=== PATIENT | female | born 1955 | race Caucasian/White ===

== ENCOUNTER 2021-12-22 20:45 | Inpatient (IN) | payer MEDICARE, OTHER, SELFPAY ==
--- NOTE | ~2021-12-22 | MR_ITS ---
EXAMINATION: MR BRAIN WITHOUT CONTRAST CLINICAL INFORMATION: Multiple sclerosis. Recent psychotic episode. COMPARISON: None available. TECHNIQUE: MRI of the brain was obtained using routine sequences without contrast. FINDINGS: No focal restricted diffusion is demonstrated to suggest acute or subacute cerebral ischemia. No evidence of acute hemorrhagic products on heme-sensitive imaging. Punctate focus of susceptibility artifact in the right parietal lobe consistent with petechial microhemorrhage. Few nonspecific scattered periventricular and deep white matter T2 FLAIR hyperintensities consistent with mild underlying microangiopathy. There is also mild nonspecific T2 FLAIR hyperintensity at the septal callosal septal interface. Proportional prominence of the ventricles and sulcal spaces without evidence of obstructive hydrocephalus. No abnormal mass effect. No midline shift. Normal appearance of the pituitary gland. Normal positioning of the cerebellar tonsils. Normal arterial and venous vascular flow voids are present. Normal, homogeneous marrow signal. Mild mucosal thickening of the paranasal sinuses. No signal abnormalities within the mastoids. MR/MR head/brain wo con IMPRESSION: 1. No acute intracranial abnormalities. 2. Mild nonspecific white matter changes and generalized cerebral volume loss.
[2021-12-22 20:55] VITALS: BP 159/84; PULSE 108; RESP 18; TEMP 36.6; O2SAT 97
[2021-12-22] MEDS: busPIRone HCl 5 MG TABLET 15 MG PO (21:55)
[2021-12-22] MEDS: Baclofen 10 MG TABLET PO (21:56)
[2021-12-22] MEDS: QUEtiapine Fumarate 200 MG TABLET 600 MG PO (21:56)
[2021-12-22] MEDS: amantadine HCL 100 MG CAPSULE PO (21:57)
[2021-12-22] MEDS: NaPROXEN 500 MG TABLET PO (21:58)
[2021-12-22] MEDS: clonazePAM 0.5 MG TABLET PO (21:58)
[2021-12-22] MEDS: QUEtiapine Fumarate 100 MG TABLET PO (21:59)
[2021-12-22] MEDS: Azelastine HCl Nasal 137 MCG/Spray 30 ML 2 SPRAY NOSTRIL-B (22:00)
--- NOTE | 2021-12-23 01:14 | PC.ADMIT ---
Pt is a 66 yr old cisgender female who arrived to S1 unit at approximately 22:55 on 12/22/2021 via stretcher with toll mechanic from [facility] due to acute exacerbation of nasir and psychosis related to bipolar. Legal status: CV. Pt has a Past Medical History of MS, Diabetes, Hypothyroidism, HTN, Chronic Back Pain. Covid Status negative. Pt A&Ox2. Forgetful but can verbalize needs. VS: 97.8, 108, 16, 159/84, 97% RA. Reported 8/10 right lower back pain and recieved PRN Naproxen with + effect. Takes pills whole with water without any swallowing difficulties. Pt has flat affect, withdrawn, pleasant, and is able to answer appropriately. I havn't slept well. I need sleep. Pt wears glasses to see visually. Pt stated that she was a former smoker of over 30 years ago. Denies substance use. LSC on ausculation. BS+ in all 4 quads. Abd non distended, non rigid. Stated that her last BM was this morning. Pedal pulses present . Lower bilateral extremity swelling present. Pt compliant with scheduled HS meds. Pt oriented to room, staff, unit, and roommate. Pt appears to be sleeping comfortably at this time. Safety checks in place. Pt reports feeling safe in hospital.
[2021-12-23] MEDS: Levothyroxine Sodium 112 MCG TABLET PO (05:51)
[2021-12-23 06:00] VITALS: BP 124/72; PULSE 91; RESP 17; TEMP 37.2; O2SAT 94
[2021-12-23] MEDS: busPIRone HCl 5 MG TABLET 15 MG PO (07:53)
[2021-12-23] MEDS: QUEtiapine Fumarate 200 MG TABLET 600 MG PO (07:54)
[2021-12-23] MEDS: clonazePAM 0.5 MG TABLET PO ×2 (07:55→13:26)
[2021-12-23] MEDS: amantadine HCL 100 MG CAPSULE PO (07:55)
[2021-12-23] MEDS: Baclofen 10 MG TABLET PO ×4 (07:55→20:47)
[2021-12-23] MEDS: Valsartan 160 MG TABLET PO (07:55)
[2021-12-23] MEDS: Furosemide 20 MG TABLET PO (07:56)
[2021-12-23] MEDS: metFORMIN HCl ER 500 MG TAB.ER.24H 1000 MG PO ×2 (07:56→16:28)
[2021-12-23] MEDS: QUEtiapine Fumarate 100 MG TABLET PO (07:57)
--- NOTE | 2021-12-23 10:30 | P.HPPS_ITS ---
HPI Date of Service: 12/23/21 Chief Complaint: Unspecified Bipolar and Related Disorder Sources of Information: patient interviewed, chart reviewed and crisis/core team assessment reviewed HPI Subjective Notes: Lewis Warning and Conditional Voluntary Narrative: Ms. Condon is a 66 year-old woman with hx of Bipolar disorder, MS, Hypothyroidi sm, who was brought to ED due to increase paranoia, confusion, poor sleep and AH. Although pt does have long hx of Bipolar, her [place] [facility] psychiatrist was concern about one this being flare up of MS, and/or new medication for weight loss (Lomaira- beta adrenergic medication that increases noradrenaline thus potential for psychosis) that pt recently started in order to have back surgery. In the ED- utox was negative. Pt had head CT- report or images not available but it appears no acute pathology (note that head CT would not identify active or recent MS lesions to suggest active MS flare up), urinalysis was negative. CBC on 12/20 shows normocytic-macrocitic anemia. CMP on 12/20 does show some elevation on Cr 1.2; BUN 32. TSH wnl 2.11. On the unit, Mrs. Condon presents as hypervigilant, overly fearful and anxious. Her speech is disorganized and is difficult for her to provide a coherent hx as to events leading to this admission. Pt reported hearing voices of demons at night. Pt constantly apologize for taking other people's time. She denies suicidal or homicidal ideation. This senior grant writer obtained most collateral information from her . I did called his OP psychiatrist, Dr. Krishnamurthy who is out on vacation but did leave message with MA about concerns described above. Past Psychiatric History: Inpt: several years ago OP: Dr. Mike Krishnamurthy [phone], ext [phone] Past medication trials: haldol, seroquel Medical Evaluation Reviewed: Yes [facility] Medical History Chronic back pain Diabetes Hypertension Hypothyroidism Multiple sclerosis Family History: none Social History: Pt lives with of several years. Substance History: NOne Trauma History: not provided. Diagnostics Vital Signs (24Hr): Vital Signs - 24 hr 12/22/21 20:55 12/23/21 06:00 Temperature 97.8 F 99.0 F Pulse Rate 108 H 91 Respiratory Rate 18 17 Blood Pressure 159/84 H 124/72 Pulse Oximetry 97 94 Oxygen Delivery Method Room Air Room Air Labs Results: 12/23/21 15:51 12/23/21 11:23 Meds/Allergies Allergies Allergies Allergy/AdvReac Type Severity Reaction Status Date / Time No Known Allergies Allergy Verified 12/22/21 17:19 Mental Status Exam Mental Status Exam Narrative: Appearance: MO walking with walker, casually groomed, fair hygiene in NAD Behavior:anxious but cooperative psychomotor:no agitation or retardation noted. No tremors. No tapping feet. Speech:mumbles at times, soft volume, not pressured, repetitive, spontaneous Thought process:disorganized and tangential Thought content:feeling anxious, overly worried Mood: anxious Affect: congruent SI:none HI:none VH/AH:reports hearing voices of demons last night, denies now Delusions:fearful but no over paranoia reported Insight/judgment:poor x 2. Memory/cog: alert, oriented to place, somewhat situation, month, date. as pt less confused consider MOCA. Assessment & Plan Assessment & Plan (1) Bipolar disorder: Status: Acute Code(s): F31.9 - Bipolar disorder, unspecified Plan Mrs. Condon is a 66 year-old with hx of Bipolar disorder. Pt brought to ED due to increase confusions, paranoid, poor sleep, overly anxious and fearful. Although pt with hx of Bipolar, stable for many years, it appears that this presentation was different. Her op psychiatrist Dr. Krishnamurthy concerned about either MS flare up and/or new medication Lomaira prescribed for weight loss which is a beta adrenergic medication that increases noradrenaline and has potential for causing psychosis. Note that in the ED, a head CT was completed but MS active or recent lesions wouldn't be detected unless there is an MRI. Neurology consult was ordered by [facility] and pending. Lomaira will be d/c. Will also for now d/c Amantadine as ultimately increases dopamine which can worsen psychosis (it appears this medication was prescribed for fatigue s/s to MS but not for movement disorder). Pt on high dose of seroquel over 1200mg by OP psyc hiatrist- will lower seroquel to 200mg po TID, add low dose of risperidone as it may be more effective for psychosis. Pt does not appear with classic s/s of nasir episode; she appears with significant confusions, paranoia, with AH. She is not pressured nor present with flight of ideas, although her speech is disorganized. For this reason is important to r/o medical causes of her presentation as treatment would be different. PLAN 1. Admit to S1, CV, 15 mins checks for safety 2. d/c amantadine (increase dopamine worsens psychosis), d/c lomaira. Decrease seroquel to 200mg po TID, will add low dose risperidone to target psychosis as it may be more effective antipsychotic. Will switch clonazepam to ativan 0.5mg po TID. 3. Pending Neurology Consult 4. Aftercare planning Patient educated on: diagnosis and medication risk/benefits Guardian/Caregiver educated on: diagnosis and medication risk/benefits Informed Consent: understands Reason for continued inpatient stay Substantial Risk for: inability to function
[2021-12-23 11:45] LABS: Estimated Average Glucose 105 mg/dL; Hemoglobin A1c % 5.3 %
[2021-12-23 11:47] LABS: Alanine Aminotransferase 24 U/L (0-31); Albumin Level 4.4 g/dL (3.5-5.0); Alkaline Phosphatase 88 U/L (39-117); Anion Gap 15 (12-20); Aspartate Amino Transferase 20 U/L (5-31); Bilirubin Total 0.2 mg/dL (0.0-1.0); Blood Urea Nitrogen 17 mg/dL (9-16); Calcium 9.9 mg/dL (8.4-10.2); Carbon Dioxide 26 mmol/L (22-29); Chloride 110 mmol/L (96-108); Estimated Glomerular Filt Rate 56; Glucose Random 116 mg/dL (60-115); Potassium 3.9 mmol/L (3.3-5.1); Sodium 147 mmol/L (135-145)
[2021-12-23 12:30] LABS: Folate 18.1 ng/mL (> or = 4.0); Vitamin B12 1193 pg/mL (200-900)
--- NOTE | 2021-12-23 14:17 | P.CONHOSP_ITS ---
History of Present Illness Data of Consult Service Date: 12/23/21 Requesting physician: Kathy Santo Primary Care Provider: Unknown Physician HPI Reason for consult: medical H&P 66 year old female with history of multiple sclerosis following [facility] MS clinic at [facility] on ocrelizumab and baclofen, noninsulin dependent type 2 diabetes, htn, bipolar I disorder with recent increase in seroquel dosing, and obesity admitted with geriatric psychiatry for psychosis from [facility]. The patient reports she has been experiencing a flare of her MS for the last week. States she missed a dose of her medication prior to this (but states the incorrect name Lomora ). Symptoms include increased weakness upper and lower extremities (ambulates with walker at baseline), bilateral and midline low back pain, and increased numbness in the hands. States she feels as if her body is collapsing. She receives ocrevus infusions and also takes baclofen. Pt is quite tangential on exam and limited history of available from the patient as well as paper chart. Denies any etoh use or illicit drug use. Review of Systems Review of Systems: General: No fevers, malaise, unintentional weight loss HEENT: Denies bluured vision or diplopia Cardiovascular: No chest pain, palpitations, or leg edema Respiratory: No shortness of breath, wheezing, cough GI: No abdominal pain, nausea, vomiting, diarrhea, constipation, melena, hematochezia MSK: b/l low back pain Neuro: +numbness hands, +weakness. No headaches Skin: No rashes or lesions REPLACED BY [facility] Medical History Chronic back pain Diabetes Hypertension Hypothyroidism Multiple sclerosis Family History Mother Diabetes HTN (hypertension) Maternal Grandmother Breast cancer Paternal Grandmother Breast cancer Father Diabetes CVA (cerebral vascular accident) Social History Household Members: Spouse Housing: House Do you presently have visiting nurse or other home services: No Unable to assess alcohol history related to: Unknown Patient Tobacco Use Status: Former Tobacco user Quit Date: over 10 years ago Tobacco use type: Cigarette Smoked in Last 30 Days: No e-Cigarette/Vaping Use: Never Used Patient Interested in Nicotine Replacement: No Patient Given Instructions on How to Stop Smoking: No Second Hand Smoke Exposure: No Use of substances other than those prescribed or required for medical reasons: Unknown Currently Displaying Signs/Symptoms of Drug Intoxication Withdrawal: No Have you been hit, kicked, punched, or otherwise hurt by someone within the past year? If so, by whom?: No Do you feel safe in your current relationship?: Yes Is there a partner from a previous relationship who is making you feel unsafe now?: No Are you made to feel afraid or neglected: No Spiritual Healthcare Practices: Jewish Advance Directives: No Advance Directives Information Provided: No Do you have thoughts of harming others: None Do you have a plan to hurt others: No Plan Recently lost weight without trying: Unsure Patient : No service: No Sexual orientation: Straight/Heterosexual Meds Allergies Allergy/AdvReac Type Severity Reaction Status Date / Time No Known Allergies Allergy Verified 12/22/21 17:19 Active Medications: Current Medications Acetaminophen (Acetaminophen 325 Mg Tablet) 650 mg PO Q6H PRN PRN Reason: Headache/Pain Mild Scale (1-3) Al Hydroxide/Mg Hydroxide (Magnesium Hydrox/Alum Hydrox 30 Ml Oral.Susp) 30 ml PO Q6H PRN PRN Reason: Heartburn/Nausea Amantadine HCl (Amantadine Hcl 100 Mg Capsule) 100 mg PO BID [facility] Last Admin: 12/23/21 07:55 Dose: 100 mg Azelastine HCl (Azelastine Hcl Nasal 137 Mcg/[place] 30 Ml) 2 spray NOSTRIL-B BID [facility] Last Admin: 12/23/21 09:02 Dose: Not Given Baclofen (Baclofen 10 Mg Tablet) 10 mg PO QID [facility] Last Admin: 12/23/21 13:26 Dose: 10 mg Buspirone HCl (Buspirone Hcl 5 Mg Tablet) 15 mg PO BID [facility] Last Admin: 12/23/21 07:53 Dose: 15 mg Clonazepam (Clonazepam 0.5 Mg Tablet) 0.5 mg PO QID [facility] Last Admin: 12/23/21 13:26 Dose: 0.5 mg Furosemide (Furosemide 20 Mg Tablet) 20 mg PO DAILY [facility]; Protocol Last Admin: 12/23/21 07:56 Dose: 20 mg Levothyroxine Sodium (Levothyroxine Sodium 112 Mcg Tablet) 112 mcg PO DAILY@0600 [facility] Last Admin: 12/23/21 05:51 Dose: 112 mcg Magnesium Hydroxide (Milk Of Magnesia 30 Ml Oral.Susp) 30 ml PO DAILY PRN PRN Reason: Constipation Metformin HCl (Metformin Hcl Er 500 Mg Tab.Er.24h) 1,000 mg PO BIDWM [facility] Last Admin: 12/23/21 07:56 Dose: 1,000 mg Naproxen (Naproxen 500 Mg Tablet) 500 mg PO BIDWM PRN PRN Reason: moderate pain Last Admin: 12/22/21 21:58 Dose: 500 mg Non-Formulary Medication (Lomaira) 8 mg PO DAILY [facility] Non-Formulary Medication (Mometasone) 0.1 mg TOPICAL BID [facility] Quetiapine Fumarate (Quetiapine Fumarate 200 Mg Tablet) 600 mg PO BID [facility] Last Admin: 12/23/21 07:54 Dose: 600 mg Quetiapine Fumarate (Quetiapine Fumarate 100 Mg Tablet) 100 mg PO TID [facility] Last Admin: 12/23/21 07:57 Dose: 100 mg Valsartan (Valsartan 160 Mg Tablet) 160 mg PO DAILY [facility] Last Admin: 12/23/21 07:55 Dose: 160 mg Physical Exam Vital Signs and Narrative: Vital Signs: Last Vital Signs Temp 99.0 F 12/23/21 06:00 Pulse 91 12/23/21 06:00 Resp 17 12/23/21 06:00 BP 124/72 12/23/21 06:00 Pulse Ox 94 12/23/21 06:00 O2 Del Method 12/23/21 06:00 Constitutional - Awake and Alert, No apparent distress. Stops often when walking but no respiratory distress, oximetry 96% with ambulation Eyes - PERRLA, EOMI Cardiovascular - S1S2, RRR, No edema Respiratory - Normal lung expansion, Normal respiratory effort, No respiratory distress, CTA bilaterally Gastrointestinal - NT / ND; +BS; No rebound or guarding Extremities - no calf tenderness bilaterally, no swelling Back: Midline and bilateral ttp Skin - Warm/Dry Neurological - Alert & oriented to self, disoriented to place and time and situation. CN II-XII in tact. Decreased sensation BUE. Mild tremors b/l hands. 3/5 strength BUE and BLE Psychological - depressed mood, tangential thoughts Results Labs CBC and Chem 7: 12/23/21 15:51 12/23/21 11:23 Labs: Laboratory Results - last 24 hr 12/23/21 12/23/21 12/23/21 11:23 11:23 11:23 Anion Gap 15 Estim Creat Clear Calc TNP Estimated GFR 56 Random Glucose 116 H Estimat Average Glucose 105 Hemoglobin A1c % 5.3 Calcium 9.9 Total Bilirubin 0.2 AST 20 ALT 24 Alkaline Phosphatase 88 Total Protein 7.0 Albumin 4.4 Vitamin B12 1193 H Folate 18.1 Assessment and Plan (1) Psychosis: Status: Acute (2) Bipolar disorder: Status: Acute Plan 66 year old female with history of multiple sclerosis following [facility] MS clinic at [facility] on ocrelizumab and baclofen, noninsulin dependent type 2 diabetes, htn, bipolar I disorder with recent increase in seroquel dosing, and obesity admitted with geriatric psychiatry for psychosis from [facility] with consult placed for medical H&P. 1-Bipolar disorder with psychosis -Recent increase in seroquel dose per paperchart -Plan per psychiatry 2-Multiple sclerosis- pt reports symptoms consistent with acute flare -Follows outpt with MS Clinic at [facility] receives ocrevus infusions -Hold baclofen for now due to AMS -Neuro consult placed 3-Chronic low back pain- exacerbated due to MS flare -Hold baclofen for now due to AMS -Tylenol/ibuprofen and lidocaine patches recommended 0-Los-hhrxcsh dependent Type 2 diabetes -A1c 5.3% reviewed -Hold home meds -POC glucose -Diabetic diet -Humalog SSI if needed 5-Hypertension- reasonably controlled -Continue amlodipine 6-HLD -Continue pravastatin 7-GERD -Continue ppi Hematology and chemistry studies reviewed and are stable. Thank you for allowing me to participate in this consult. Will await neurology recommendations. Please do not hesitate to call for further questions.
[2021-12-23 16:08] LABS: MANUAL DIFF FLAG NO
[2021-12-23 16:12] LABS: Basophils Absolute Auto 0.1 X10*3/uL (0.0-0.2); Basophils Percent Auto 0.6 % (0-2); Eosinophils Absolute Auto 0.3 X10*3/uL (0.0-0.4); Eosinophils Percent Auto 2.8 % (0-4); Hematocrit 32.4 % (37.0-47.0); Hemoglobin 10.8 g/dl (12.0-16.0); Imm Gran Abs Auto 0.04 X10*3/uL (0.00-0.03); Imm Gran Pct Auto 0.4 % (0.0-0.4); Lymphocytes Absolute Auto 1.3 X10*3/uL (1.2-4.9); Lymphocytes Percent Auto 14.5 % (20-40); Mean Corpuscular HGB Conc 33.3 g/dl (31.0-35.0); Mean Corpuscular Hemoglobin 30.5 pg (27.0-33.0); Mean Corpuscular Volume 91.5 fL (80.0-98.0); Mean Platelet Volume 10.9 fL (9.4-12.3); Monocytes Absolute Auto 1.4 X10*3/uL (0.1-1.2); Monocytes Percent Auto 15.7 % (2-11); Neutrophils Absolute Auto 5.9 x10*3/uL (2.0-8.3); Platelet Count 291 X10*3/uL (160-400); Red Blood Count 3.54 X10*6/uL (4.20-5.50); Red Cell Distribution Width 13.9 % (11.0-16.0); White Blood Count 8.9 X10*3/uL (4.8-10.8)
[2021-12-23 17:24] LABS: Erythrocyte Sedimentation Rate 16 MM/HR (0-20)
[2021-12-23 18:00] VITALS: BP 128/68; PULSE 95; RESP 18; TEMP 36.6; O2SAT 96
[2021-12-23] MEDS: risperiDONE 0.5 MG TABLET PO (20:47)
[2021-12-23] MEDS: QUEtiapine Fumarate 200 MG TABLET PO (20:47)
[2021-12-23] MEDS: LORazepam 0.5 MG TABLET PO (20:48)
[2021-12-24] MEDS: NaPROXEN 500 MG TABLET PO ×2 (00:48→21:29)
[2021-12-24 06:00] VITALS: BP 131/62; PULSE 92; TEMP 36.4; O2SAT 98
[2021-12-24] MEDS: Levothyroxine Sodium 112 MCG TABLET PO (06:01)
[2021-12-24 09:26] LABS: Anion Gap 18 (12-20); Blood Urea Nitrogen 24 mg/dL (9-16); Calcium 9.1 mg/dL (8.4-10.2); Carbon Dioxide 22 mmol/L (22-29); Chloride 108 mmol/L (96-108); Estimated Glomerular Filt Rate > 60; Glucose Random 84 mg/dL (60-115); Potassium 3.9 mmol/L (3.3-5.1); Sodium 144 mmol/L (135-145)
[2021-12-24] MEDS: LORazepam 0.5 MG TABLET PO ×3 (09:31→20:31)
[2021-12-24] MEDS: Baclofen 10 MG TABLET PO ×4 (09:31→20:32)
[2021-12-24] MEDS: QUEtiapine Fumarate 200 MG TABLET PO ×3 (09:32→20:32)
[2021-12-24] MEDS: Valsartan 160 MG TABLET PO (09:32)
[2021-12-24] MEDS: metFORMIN HCl ER 500 MG TAB.ER.24H 1000 MG PO ×2 (09:32→16:45)
[2021-12-24] MEDS: risperiDONE 0.5 MG TABLET PO ×2 (09:33→20:32)
[2021-12-24] MEDS: Azelastine HCl Nasal 137 MCG/Spray 30 ML 2 SPRAY NOSTRIL-B ×2 (09:33→20:32)
[2021-12-24] MEDS: Furosemide 20 MG TABLET PO (09:33)
--- NOTE | 2021-12-24 17:11 | HO.PSYCHPN ---
Subjective Subjective Date of Service: 12/24/21 Reason For Visit: Unspecified Bipolar and Related Disorder Subjective Notes: Conditional Voluntary Interim History: Roxy awaits a visit from her Mike. She discussed chronic pain, poor sleep last evening due to increased noise (team are currently making a room change for her). Discussed beginning POC-pt's PCP told her to do this TID before meals and gave her goal ranges which she recalls. Current focus is exacerbation of medical symptoms. Well engaged, alert, attentive and able to articulate her needs. Medication Compliance: Yes Side effects from medications: No Attending Groups: Yes Review of Systems Acute medical concerns: No Medical Review of Systems: unchanged Mental Status Exam Mental Status Exam Narrative: Appearance: MO walking with walker, casually groomed, fair hygiene in NAD Behavior:anxious but cooperative psychomotor:no agitation or retardation noted. No tremors. No tapping feet. Speech:mumbles at times, soft volume, not pressured, repetitive, spontaneous Thought process:disorganized and tangential Thought content:feeling anxious, overly worried Mood: anxious Affect: congruent SI:none HI:none VH/AH:reports hearing voices of demons last night, denies now Delusions:fearful but no over paranoia reported Insight/judgment:poor x 2. Memory/cog: alert, oriented to place, somewhat situation, month, date. as pt less confused consider MOCA. Diagnostics Vital Signs (24Hr): Vital Signs - 24 hr 12/23/21 18:00 12/24/21 06:00 Temperature 97.8 F 97.6 F Pulse Rate 95 92 Respiratory Rate 18 Blood Pressure 128/68 131/62 Pulse Oximetry 96 98 Oxygen Delivery Method Room Air Room Air Labs Results: 12/23/21 15:51 12/24/21 08:09 Labs: Laboratory Results - last 48 hr 12/23/21 12/23/21 12/23/21 11:23 11:23 11:23 WBC RBC Hgb Hct MCV MCH MCHC RDW Plt Count MPV Immature Gran % (Auto) Neut % (Auto) Lymph % (Auto) Forest % (Auto) Eos % (Auto) Baso % (Auto) Lymph # (Auto) [place] # (Auto) Eos # (Auto) Baso # (Auto) Abs Immat Gran (auto) Absolute Neuts (auto) Absolute Nucleated RBC Nucleated RBC % (auto) ESR Sodium 147 H Potassium 3.9 Chloride 110 H Carbon Dioxide 26 Anion Gap 15 BUN 17 H Creatinine 0.99 Estim Creat Clear Calc TNP Estimated GFR 56 POC Glucose Random Glucose 116 H Estimat Average Glucose 105 Hemoglobin A1c % 5.3 Calcium 9.9 Total Bilirubin 0.2 AST 20 ALT 24 Alkaline Phosphatase 88 Total Protein 7.0 Albumin 4.4 Vitamin B12 1193 H Folate 18.1 12/23/21 12/23/21 12/24/21 15:51 15:51 08:09 WBC 8.9 RBC 3.54 L Hgb 10.8 L Hct 32.4 L MCV 91.5 MCH 30.5 MCHC 33.3 RDW 13.9 Plt Count 291 MPV 10.9 Immature Gran % (Auto) 0.4 Neut % (Auto) 66.0 Lymph % (Auto) 14.5 L Forest % (Auto) 15.7 H Eos % (Auto) 2.8 Baso % (Auto) 0.6 Lymph # (Auto) 1.3 Forest # (Auto) 1.4 H Eos # (Auto) 0.3 Baso # (Auto) 0.1 Abs Immat Gran (auto) 0.04 H Absolute Neuts (auto) 5.9 Absolute Nucleated RBC 0.000 Nucleated RBC % (auto) 0.0 ESR 16 Sodium 144 Potassium 3.9 Chloride 108 Carbon Dioxide 22 Anion Gap 18 BUN 24 H Creatinine 0.87 Estim Creat Clear Calc TNP Estimated GFR > 60 POC Glucose Random Glucose 84 Estimat Average Glucose Hemoglobin A1c % Calcium 9.1 D Total Bilirubin AST ALT Alkaline Phosphatase Total Protein Albumin Vitamin B12 Folate 12/24/21 16:41 WBC RBC Hgb Hct MCV MCH MCHC RDW Plt Count MPV Immature Gran % (Auto) Neut % (Auto) Lymph % (Auto) Forest % (Auto) Eos % (Auto) Baso % (Auto) Lymph # (Auto) Forest # (Auto) Eos # (Auto) Baso # (Auto) Abs Immat Gran (auto) Absolute Neuts (auto) Absolute Nucleated RBC Nucleated RBC % (auto) ESR Sodium Potassium Chloride Carbon Dioxide Anion Gap BUN Creatinine Estim Creat Clear Calc Estimated GFR POC Glucose 105 Random Glucose Estimat Average Glucose Hemoglobin A1c % Calcium Total Bilirubin AST ALT Alkaline Phosphatase Total Protein Albumin Vitamin B12 Folate Medications Medications Current Medications Acetaminophen (Acetaminophen 325 Mg Tablet) 650 mg PO Q6H PRN PRN Reason: Headache/Pain Mild Scale (1-3) Al Hydroxide/Mg Hydroxide (Magnesium Hydrox/Alum Hydrox 30 Ml Oral.Susp) 30 ml PO Q6H PRN PRN Reason: Heartburn/Nausea Azelastine HCl (Azelastine Hcl Nasal 137 Mcg/[place] 30 Ml) 2 spray NOSTRIL-B BID [facility] Last Admin: 12/24/21 09:33 Dose: 2 spray Baclofen (Baclofen 10 Mg Tablet) 10 mg PO QID [facility] Last Admin: 12/24/21 15:22 Dose: 10 mg Furosemide (Furosemide 20 Mg Tablet) 20 mg PO DAILY [facility]; Protocol Last Admin: 12/24/21 09:33 Dose: 20 mg Levothyroxine Sodium (Levothyroxine Sodium 112 Mcg Tablet) 112 mcg PO DAILY@0600 [facility] Last Admin: 12/24/21 06:01 Dose: 112 mcg Lorazepam (Lorazepam 0.5 Mg Tablet) 0.5 mg PO TID [facility] Last Admin: 12/24/21 15:22 Dose: 0.5 mg Magnesium Hydroxide (Milk Of Magnesia 30 Ml Oral.Susp) 30 ml PO DAILY PRN PRN Reason: Constipation Metformin HCl (Metformin Hcl Er 500 Mg Tab.Er.24h) 1,000 mg PO BIDWM [facility] Last Admin: 12/24/21 16:45 Dose: 1,000 mg Naproxen (Naproxen 500 Mg Tablet) 500 mg PO BIDWM PRN PRN Reason: moderate pain Last Admin: 12/24/21 00:48 Dose: 500 mg Non-Formulary Medication (Mometasone) 0.1 mg TOPICAL BID [facility] Quetiapine Fumarate (Quetiapine Fumarate 200 Mg Tablet) 200 mg PO TID [facility] Last Admin: 12/24/21 15:22 Dose: 200 mg Risperidone (Risperidone 0.5 Mg Tablet) 0.5 mg PO BID [facility] Last Admin: 12/24/21 09:33 Dose: 0.5 mg Valsartan (Valsartan 160 Mg Tablet) 160 mg PO DAILY [facility] Last Admin: 12/24/21 09:32 Dose: 160 mg Allergies Allergies Allergy/AdvReac Type Severity Reaction Status Date / Time No Known Allergies Allergy Verified 12/22/21 17:19 Assessment & Plan Assessment & Plan (1) Bipolar disorder: Status: Acute Code(s): F31.9 - Bipolar disorder, unspecified Plan Mrs. Condon is a 66 year-old with hx of Bipolar disorder. Pt brought to ED due to increase confusions, paranoid, poor sleep, overly anxious and fearful. Although pt with hx of Bipolar, stable for many years, it appears that this presentation was different. Her op psychiatrist Dr. Krishnamurthy concerned about either MS flare up and/or new medication Lomaira prescribed for weight loss which is a beta adrenergic medication that increases noradrenaline and has potential for causing psychosis. Note that in the ED, a head CT was completed but MS active or recent lesions wouldn't be detected unless there is an MRI. Neurology consult was ordered by RUSS and pending. Lomaira will be d/c. Will also for now d/c Amantadine as ultimately increases dopamine which can worsen psychosis (it appears this medication was prescribed for fatigue s/s to MS but not for movement disorder). Pt on high dose of seroquel over 1200mg by OP psychiatrist- will lower seroquel to 200mg po TID, add low dose of risperidone as it may be more effective for psychosis. Pt does not appear with classic s/s of nasir episode; she appears with significant confusions, paranoia, with AH. She is not pressured nor present with flight of ideas, although her speech is disorganized. For this reason is important to r/o medical causes of her presentation as treatment would be different. 12/24/21- Continue current plan. PLAN 1. Admit to S1, CV, 15 mins checks for safety 2. d/c amantadine (increase dopamine worsens psychosis), d/c lomaira. Decrease seroquel to 200mg po TID, will add low dose risperidone to target psychosis as it may be more effective antipsychotic. Will switch clonazepam to ativan 0.5mg po TID. 3. Pending Neurology Consult 4. Aftercare planning I spent minutes with the patient and/or on the patient floor today, greater than?50% of which was spent counseling/coordinating care. Patient educated on: therapeutic strategies Informed Consent: further education needed Reason for contiued inpatient stay Substantial Risk for: inability to function and rapid decompensation
[2021-12-24 18:00] VITALS: BP 144/59; PULSE 99; RESP 18; TEMP 36.5; O2SAT 95
[2021-12-24] MEDS: Milk of Magnesia 30 ML ORAL.SUSP PO (20:32)
[2021-12-25] MEDS: Acetaminophen 325 MG TABLET 650 MG PO ×2 (00:32→20:52)
[2021-12-25] MEDS: Levothyroxine Sodium 112 MCG TABLET PO (05:34)
[2021-12-25 06:00] VITALS: BP 137/89; PULSE 87; TEMP 36.2; O2SAT 95
[2021-12-25] MEDS: Azelastine HCl Nasal 137 MCG/Spray 30 ML 2 SPRAY NOSTRIL-B (08:30)
[2021-12-25] MEDS: metFORMIN HCl ER 500 MG TAB.ER.24H 1000 MG PO ×2 (08:31→17:46)
[2021-12-25] MEDS: LORazepam 0.5 MG TABLET PO ×3 (08:31→20:32)
[2021-12-25] MEDS: QUEtiapine Fumarate 200 MG TABLET PO ×3 (08:31→20:36)
[2021-12-25] MEDS: risperiDONE 0.5 MG TABLET PO ×2 (08:32→20:37)
[2021-12-25] MEDS: Furosemide 20 MG TABLET PO (08:32)
[2021-12-25] MEDS: Valsartan 160 MG TABLET PO (08:32)
[2021-12-25] MEDS: Baclofen 10 MG TABLET PO ×4 (10:13→20:32)
--- NOTE | 2021-12-25 16:52 | HO.PSYCHPN ---
Subjective Subjective Date of Service: 12/25/21 Reason For Visit: Unspecified Bipolar and Related Disorder Interim History: Roxy spoke of her history of traumatic experience today and how it influenced her bipolar disorder. She is concerned that her Seroquel XR was changed due to not being available from formulary. Discussed options with her-she will consider. Reports constipation-glycerine suppository ordered. Pt is asking if her dog may visit. Discussed with team. Medication Compliance: Yes Side effects from medications: No Attending Groups: Intermittent Review of Systems Acute medical concerns: No Medical Review of Systems: unchanged Mental Status Exam Mental Status Exam Patient Appearance: Appropriate Patient Orientation: Person, Place and Situation Level of Consciousness: Alert Patient Behavior: Talkative, Confused and Good Eye Contact Mood Description: Withdrawn and Depressed Affect Description: Withdrawn and Flat Patient Cognition Impaired: No Ability to Follow Directions: Good Speech Pattern: Spontaneous Speech Memory Description: Episodic Impaired Hallucinations: None Delusions: Present Perceptual Disturbances: Depersonalization and Derealization Thought Process: Rumination Thought Content: positive for Perseveration Depressive Symptoms: Hopelessness, Unhappiness, Increased Fatigue, Low Self Esteem, Loss of Energy and Difficulty Concentrating Judgement: Fair Diagnostics Vital Signs (24Hr): Vital Signs - 24 hr 12/24/21 18:00 12/25/21 06:00 Temperature 97.7 F 97.1 F Pulse Rate 99 87 Respiratory Rate 18 Blood Pressure 144/59 H 137/89 Pulse Oximetry 95 95 Oxygen Delivery Method Room Air Room Air Labs Results: 12/23/21 15:51 12/24/21 08:09 Labs: Laboratory Results - last 48 hr 12/23/21 12/24/21 12/24/21 15:51 08:09 16:41 ESR 16 Sodium 144 Potassium 3.9 Chloride 108 Carbon Dioxide 22 Anion Gap 18 BUN 24 H Creatinine 0.87 Estim Creat Clear Calc TNP Estimated GFR > 60 POC Glucose 105 Random Glucose 84 Calcium 9.1 D 12/25/21 12/25/21 12/25/21 08:53 11:36 16:25 ESR Sodium Potassium Chloride Carbon Dioxide Anion Gap BUN Creatinine Estim Creat Clear Calc Estimated GFR POC Glucose 143 H 91 109 Random Glucose Calcium Medications Medications Current Medications Acetaminophen (Acetaminophen 325 Mg Tablet) 650 mg PO Q6H PRN PRN Reason: Headache/Pain Mild Scale (1-3) Last Admin: 12/25/21 00:32 Dose: 650 mg Al Hydroxide/Mg Hydroxide (Magnesium Hydrox/Alum Hydrox 30 Ml Oral.Susp) 30 ml PO Q6H PRN PRN Reason: Heartburn/Nausea Azelastine HCl (Azelastine Hcl Nasal 137 Mcg/[place] 30 Ml) 2 spray NOSTRIL-B BID [facility] Last Admin: 12/25/21 08:30 Dose: 2 spray Baclofen (Baclofen 10 Mg Tablet) 10 mg PO QID [facility] Last Admin: 12/25/21 15:56 Dose: 10 mg Furosemide (Furosemide 20 Mg Tablet) 20 mg PO DAILY [facility]; Protocol Last Admin: 12/25/21 08:32 Dose: 20 mg Glycerin (Glycerin Adult Supp.Rect) 1 supp LA BEDTIME PRN PRN Reason: constipation Levothyroxine Sodium (Levothyroxine Sodium 112 Mcg Tablet) 112 mcg PO DAILY@0600 [facility] Last Admin: 12/25/21 05:34 Dose: 112 mcg Lorazepam (Lorazepam 0.5 Mg Tablet) 0.5 mg PO TID [facility] Last Admin: 12/25/21 15:56 Dose: 0.5 mg Magnesium Hydroxide (Milk Of Magnesia 30 Ml Oral.Susp) 30 ml PO DAILY PRN PRN Reason: Constipation Last Admin: 12/24/21 20:32 Dose: 30 ml Metformin HCl (Metformin Hcl Er 500 Mg Tab.Er.24h) 1,000 mg PO BIDWM [facility] Last Admin: 12/25/21 08:31 Dose: 1,000 mg Naproxen (Naproxen 500 Mg Tablet) 500 mg PO BIDWM PRN PRN Reason: moderate pain Last Admin: 12/24/21 21:29 Dose: 500 mg Quetiapine Fumarate (Quetiapine Fumarate 200 Mg Tablet) 200 mg PO TID [facility] Last Admin: 12/25/21 15:56 Dose: 200 mg Risperidone (Risperidone 0.5 Mg Tablet) 0.5 mg PO BID [facility] Last Admin: 12/25/21 08:32 Dose: 0.5 mg Triamcinolone Acetonide (Triamcinolone Acet 0.1 % Cream 15 Gm Tube) 1 appl TOPICAL BID [facility] Last Admin: 12/25/21 10:13 Dose: Not Given Valsartan (Valsartan 160 Mg Tablet) 160 mg PO DAILY [facility] Last Admin: 12/25/21 08:32 Dose: 160 mg Allergies Allergies Allergy/AdvReac Type Severity Reaction Status Date / Time No Known Allergies Allergy Verified 12/22/21 17:19 Assessment & Plan Assessment & Plan (1) Bipolar disorder: Status: Acute Code(s): F31.9 - Bipolar disorder, unspecified Plan Mrs. Condon is a 66 year-old with hx of Bipolar disorder. Pt brought to ED due to increase confusions, paranoid, poor sleep, overly anxious and fearful. Although pt with hx of Bipolar, stable for many years, it appears that this presentation was different. Her op psychiatrist Dr. Krishnamurthy concerned about either MS flare up and/or new medication Lomaira prescribed for weight loss which is a beta adrenergic medication that increases noradrenaline and has potential for causing psychosis. Note that in the ED, a head CT was completed but MS active or recent lesions wouldn't be detected unless there is an MRI. Neurology consult was ordered by RUSS and pending. Lomaira will be d/c. Will also for now d/c Amantadine as ultimately increases dopamine which can worsen psychosis (it appears this medication was prescribed for fatigue s/s to MS but not for movement disorder). Pt on high dose of seroquel over 1200mg by OP psychiatrist- will lower seroquel to 200mg po TID, add low dose of risperidone as it may be more effective for psychosis. Pt does not appear with classic s/s of nasir episode; she appears with significant confusions, paranoia, with AH. She is not pressured nor present with flight of ideas, although her speech is disorganized. For this reason is important to r/o medical causes of her presentation as treatment would be different. 12/24/21- Continue current plan. 12/25/21- Continue current plan. PLAN 1. Admit to S1, CV, 15 mins checks for safety 2. d/c amantadine (increase dopamine worsens psychosis), d/c lomaira. Decrease seroquel to 200mg po TID, will add low dose risperidone to target psychosis as it may be more effective antipsychotic. Will switch clonazepam to ativan 0.5mg po TID. 3. Pending Neurology Consult 4. Aftercare planning I spent minutes with the patient and/or on the patient floor today, greater than?50% of which was spent counseling/coordinating care. Patient educated on: therapeutic strategies Informed Consent: further education needed Reason for contiued inpatient stay Substantial Risk for: med/psych decompensation
[2021-12-25 18:00] VITALS: BP 155/57; PULSE 100; RESP 18; TEMP 36.6; O2SAT 97
[2021-12-25] MEDS: NaPROXEN 500 MG TABLET PO (20:39)
[2021-12-25] MEDS: Triamcinolone Acet 0.1 % Cream 15 GM TUBE 1 APPL TOPICAL (20:53)
[2021-12-25] MEDS: Glycerin Adult SUPP.RECT 1 SUPP PR (23:04)
[2021-12-26 06:00] VITALS: BP 138/63; PULSE 80; RESP 14; TEMP 36.1; O2SAT 95
[2021-12-26] MEDS: Acetaminophen 325 MG TABLET 650 MG PO ×2 (06:04→22:02)
[2021-12-26] MEDS: Levothyroxine Sodium 112 MCG TABLET PO (06:05)
[2021-12-26] MEDS: metFORMIN HCl ER 500 MG TAB.ER.24H 1000 MG PO ×2 (09:21→17:15)
[2021-12-26] MEDS: risperiDONE 0.5 MG TABLET PO ×2 (09:22→20:23)
[2021-12-26] MEDS: LORazepam 0.5 MG TABLET PO ×3 (09:22→20:23)
[2021-12-26] MEDS: Baclofen 10 MG TABLET PO ×4 (09:22→20:22)
[2021-12-26] MEDS: Furosemide 20 MG TABLET PO (09:22)
[2021-12-26] MEDS: Valsartan 160 MG TABLET PO (09:22)
[2021-12-26] MEDS: QUEtiapine Fumarate 200 MG TABLET PO ×3 (09:22→20:23)
[2021-12-26 09:32] LABS: Glucose, Whole Blood 92 mg/dL (60-115)
[2021-12-26] MEDS: Triamcinolone Acet 0.1 % Cream 15 GM TUBE 1 APPL TOPICAL ×2 (11:18→20:33)
[2021-12-26 12:02] LABS: Glucose, Whole Blood 182 mg/dL (60-115)
[2021-12-26 14:43] LABS: CRP High Sensitivity 0.6 mg/L
[2021-12-26 16:59] LABS: Glucose, Whole Blood 87 mg/dL (60-115)
--- NOTE | 2021-12-26 17:00 | HO.PSYCHPN ---
Subjective Subjective Date of Service: 12/26/21 Reason For Visit: Unspecified Bipolar and Related Disorder Interim History: Improved, alert, talking about med changes since admission. Mood with positive elevation at times-believes Rispedal has been more helpful than Seroquel. Asking about discharge. Medication Compliance: Yes Side effects from medications: No Attending Groups: Intermittent Review of Systems Acute medical concerns: No Medical Review of Systems: unchanged Mental Status Exam Mental Status Exam Patient Appearance: Appropriate Patient Orientation: Person, Place and Situation Level of Consciousness: Alert Patient Behavior: Talkative, Confused and Good Eye Contact Mood Description: Withdrawn Affect Description: Withdrawn, Cheerful and Expansive Patient Cognition Impaired: No Ability to Follow Directions: Good Speech Pattern: Spontaneous Speech Memory Description: Episodic Impaired Hallucinations: None Delusions: Present Perceptual Disturbances: Depersonalization and Derealization Thought Process: Rumination Thought Content: positive for Perseveration Depressive Symptoms: Loss of Energy and Difficulty Concentrating Judgement: Fair Diagnostics Vital Signs (24Hr): Vital Signs - 24 hr 12/25/21 18:00 12/26/21 06:00 Temperature 97.9 F 96.9 F Pulse Rate 100 80 Respiratory Rate 18 14 Blood Pressure 155/57 H 138/63 Pulse Oximetry 97 95 Oxygen Delivery Method Room Air Room Air Labs Results: 12/23/21 15:51 12/24/21 08:09 Labs: Laboratory Results - last 48 hr 12/23/21 12/25/21 12/25/21 15:51 08:53 11:36 POC Glucose 143 H 91 C-React Prot High Sens 0.6 12/25/21 12/26/21 12/26/21 16:25 09:17 11:56 POC Glucose 109 92 182 H C-React Prot High Sens 12/26/21 16:45 POC Glucose 87 C-React Prot High Sens Medications Medications Current Medications Acetaminophen (Acetaminophen 325 Mg Tablet) 650 mg PO Q6H PRN PRN Reason: Headache/Pain Mild Scale (1-3) Last Admin: 12/26/21 06:04 Dose: 650 mg Al Hydroxide/Mg Hydroxide (Magnesium Hydrox/Alum Hydrox 30 Ml Oral.Susp) 30 ml PO Q6H PRN PRN Reason: Heartburn/Nausea Azelastine HCl (Azelastine Hcl Nasal 137 Mcg/[place] 30 Ml) 2 spray NOSTRIL-B BID [facility] Last Admin: 12/26/21 14:09 Dose: Not Given Baclofen (Baclofen 10 Mg Tablet) 10 mg PO QID [facility] Last Admin: 12/26/21 14:14 Dose: 10 mg Dextrose (Dextrose 50 % 25 Gm/50 Ml Syringe) 25 gm IVPUSH Q15M PRN; Protocol PRN Reason: per Hypoglycemia Standing Ord. Furosemide (Furosemide 20 Mg Tablet) 20 mg PO DAILY [facility]; Protocol Last Admin: 12/26/21 09:22 Dose: 20 mg Glucose (Glucose Gel 15 Gm Gel..Gram.) 15 gm PO Q15M PRN; Protocol PRN Reason: per Hypoglycemia Standing Ord. Glycerin (Glycerin Adult Supp.Rect) 1 supp SC BEDTIME PRN PRN Reason: constipation Last Admin: 12/25/21 23:04 Dose: 1 supp Insulin Human Lispro (Insulin Lispro 100 Unit/Ml 3 Ml Vial) 0 unit SUBCUT QIDACHS [facility]; Protocol Stop: 12/27/21 12:15 Levothyroxine Sodium (Levothyroxine Sodium 112 Mcg Tablet) 112 mcg PO DAILY@0600 [facility] Last Admin: 12/26/21 06:05 Dose: 112 mcg Lorazepam (Lorazepam 0.5 Mg Tablet) 0.5 mg PO TID [facility] Last Admin: 12/26/21 16:15 Dose: 0.5 mg Magnesium Hydroxide (Milk Of Magnesia 30 Ml Oral.Susp) 30 ml PO DAILY PRN PRN Reason: Constipation Last Admin: 12/24/21 20:32 Dose: 30 ml Metformin HCl (Metformin Hcl Er 500 Mg Tab.Er.24h) 1,000 mg PO BIDWM [facility] Last Admin: 12/26/21 09:21 Dose: 1,000 mg Naproxen (Naproxen 500 Mg Tablet) 500 mg PO BIDWM PRN PRN Reason: moderate pain Last Admin: 12/25/21 20:39 Dose: 500 mg Quetiapine Fumarate (Quetiapine Fumarate 200 Mg Tablet) 200 mg PO TID [facility] Last Admin: 12/26/21 16:15 Dose: 200 mg Risperidone (Risperidone 0.5 Mg Tablet) 0.5 mg PO BID [facility] Last Admin: 12/26/21 09:22 Dose: 0.5 mg Triamcinolone Acetonide (Triamcinolone Acet 0.1 % Cream 15 Gm Tube) 1 appl TOPICAL BID [facility] Last Admin: 12/26/21 11:18 Dose: 1 appl Valsartan (Valsartan 160 Mg Tablet) 160 mg PO DAILY [facility] Last Admin: 12/26/21 09:22 Dose: 160 mg Allergies Allergies Allergy/AdvReac Type Severity Reaction Status Date / Time No Known Allergies Allergy Verified 12/22/21 17:19 Assessment & Plan Assessment & Plan (1) Bipolar disorder: Status: Acute Code(s): F31.9 - Bipolar disorder, unspecified Plan Mrs. Condon is a 66 year-old with hx of Bipolar disorder. Pt brought to ED due to increase confusions, paranoid, poor sleep, overly anxious and fearful. Although pt with hx of Bipolar, stable for many years, it appears that this presentation was different. Her op psychiatrist Dr. Krishnamurthy concerned about either MS flare up and/or new medication Lomaira prescribed for weight loss which is a beta adrenergic medication that increases noradrenaline and has potential for causing psychosis. Note that in the ED, a head CT was completed but MS active or recent lesions wouldn't be detected unless there is an MRI. Neurology consult was ordered by [facility]USS and pending. Lomaira will be d/c. Will also for now d/c Amantadine as ultimately increases dopamine which can worsen psychosis (it appears this medication was prescribed for fatigue s/s to MS but not for movement disorder). Pt on high dose of seroquel over 1200mg by OP psychiatrist- will lower seroquel to 200mg po TID, add low dose of risperidone as it may be more effective for psychosis. Pt does not appear with classic s/s of nasir episode; she appears with significant confusions, paranoia, with AH. She is not pressured nor present with flight of ideas, although her speech is disorganized. For this reason is important to r/o medical causes of her presentation as treatment would be different. 12/24/21- Continue current plan. 12/25/21- Continue current plan. 12/26/21- Pt reporting improvement today with medication changes PLAN 1. Admit to S1, CV, 15 mins checks for safety 2. d/c amantadine (increase dopamine worsens psychosis), d/c lomaira. Decrease seroquel to 200mg po TID, will add low dose risperidone to target psychosis as it may be more effective antipsychotic. Will switch clonazepam to ativan 0.5mg po TID. 3. Pending Neurology Consult 4. Aftercare planning I spent minutes with the patient and/or on the patient floor today, greater than?50% of which was spent counseling/coordinating care. Patient educated on: medication risk/benefits and therapeutic strategies Informed Consent: further education needed Reason for contiued inpatient stay Substantial Risk for: med/psych decompensation
[2021-12-26 17:29] VITALS: BP 138/63; PULSE 80; RESP 14; O2SAT 95
[2021-12-26 20:20] LABS: Glucose, Whole Blood 111 mg/dL (60-115)
[2021-12-26] MEDS: NaPROXEN 500 MG TABLET PO (22:02)
[2021-12-27] MEDS: Levothyroxine Sodium 112 MCG TABLET PO (04:55)
[2021-12-27] MEDS: Acetaminophen 325 MG TABLET 650 MG PO (06:46)
[2021-12-27 07:54] LABS: Glucose, Whole Blood 92 mg/dL (60-115)
[2021-12-27 08:15] VITALS: BP 138/63; PULSE 88; RESP 16; TEMP 36.7; O2SAT 96
[2021-12-27] MEDS: risperiDONE 0.5 MG TABLET PO ×2 (08:23→20:59)
[2021-12-27] MEDS: Valsartan 160 MG TABLET PO (08:23)
[2021-12-27] MEDS: metFORMIN HCl ER 500 MG TAB.ER.24H 1000 MG PO ×2 (08:23→17:50)
[2021-12-27] MEDS: Furosemide 20 MG TABLET PO (08:23)
[2021-12-27] MEDS: QUEtiapine Fumarate 200 MG TABLET PO ×3 (08:23→20:59)
[2021-12-27] MEDS: Baclofen 10 MG TABLET PO ×4 (08:23→20:59)
[2021-12-27] MEDS: LORazepam 0.5 MG TABLET PO ×3 (08:24→20:59)
[2021-12-27] MEDS: NaPROXEN 500 MG TABLET PO (11:02)
[2021-12-27 11:34] LABS: Glucose, Whole Blood 100 mg/dL (60-115)
[2021-12-27] MEDS: Milk of Magnesia 30 ML ORAL.SUSP PO (11:40)
[2021-12-27 16:46] LABS: Glucose, Whole Blood 110 mg/dL (60-115)
--- NOTE | 2021-12-27 17:32 | HO.PSYCHPN ---
Subjective Subjective Date of Service: 12/27/21 Reason For Visit: Unspecified Bipolar and Related Disorder Subjective Notes: Conditional Voluntary Interim History: The nursing staff reported the patient had been compliant with treatment. She was admitted for psychosis and nasir and she has several medical comorbidities such as multiple sclerosis diabetes, hypothyroidism and now on others. On admission she was so we pain and delusional. On interview she denies active auditory hallucinations, she was pleasant and cooperative but her thought process was abnormal with flight of ideas. No safety concerns at this moment. We discussed at length of the need of a new MRI since she could have had a new flare of multiple sclerosis Mental Status Exam Mental Status Exam Patient Appearance: Well Grooomed Patient Orientation: Person Level of Consciousness: Awake Patient Behavior: Cooperative Mood Description: Constricted Affect Description: Calm Ability to Follow Directions: Good Speech Pattern: Clear Hallucinations: Auditory Delusions: Paranoid Ideation Thought Process: Distracted Thought Content: positive for Circumstantial Judgement: Fair Diagnostics Vital Signs (24Hr): Vital Signs - 24 hr 12/27/21 08:15 Temperature 98.1 F Pulse Rate 88 Respiratory Rate 16 Blood Pressure 138/63 Pulse Oximetry 96 Oxygen Delivery Method Room Air Labs Results: 12/23/21 15:51 12/24/21 08:09 Labs: Laboratory Results - last 48 hr 12/23/21 12/26/21 12/26/21 15:51 09:17 11:56 POC Glucose 92 182 H C-React Prot High Sens 0.6 12/26/21 12/26/21 12/27/21 16:45 20:16 07:49 POC Glucose 87 111 92 C-React Prot High Sens 12/27/21 12/27/21 11:24 16:41 POC Glucose 100 110 C-React Prot High Sens Medications Medications Current Medications Acetaminophen (Acetaminophen 325 Mg Tablet) 650 mg PO Q6H PRN PRN Reason: Headache/Pain Mild Scale (1-3) Last Admin: 12/27/21 06:46 Dose: 650 mg Al Hydroxide/Mg Hydroxide (Magnesium Hydrox/Alum Hydrox 30 Ml Oral.Susp) 30 ml PO Q6H PRN PRN Reason: Heartburn/Nausea Azelastine HCl (Azelastine Hcl Nasal 137 Mcg/[place] 30 Ml) 2 spray NOSTRIL-B BID YULIA Last Admin: 12/27/21 09:03 Dose: Not Given Baclofen (Baclofen 10 Mg Tablet) 10 mg PO QID [facility] Last Admin: 12/27/21 14:56 Dose: 10 mg Dextrose (Dextrose 50 % 25 Gm/50 Ml Syringe) 25 gm IVPUSH Q15M PRN; Protocol PRN Reason: per Hypoglycemia Standing Ord. Furosemide (Furosemide 20 Mg Tablet) 20 mg PO DAILY [facility]; Protocol Last Admin: 12/27/21 08:23 Dose: 20 mg Glucose (Glucose Gel 15 Gm Gel..Gram.) 15 gm PO Q15M PRN; Protocol PRN Reason: per Hypoglycemia Standing Ord. Glycerin (Glycerin Adult Supp.Rect) 1 supp [place] BEDTIME PRN PRN Reason: constipation Last Admin: 12/25/21 23:04 Dose: 1 supp Levothyroxine Sodium (Levothyroxine Sodium 112 Mcg Tablet) 112 mcg PO DAILY@0600 [facility] Last Admin: 12/27/21 04:55 Dose: 112 mcg Lorazepam (Lorazepam 0.5 Mg Tablet) 0.5 mg PO TID [facility] Last Admin: 12/27/21 14:56 Dose: 0.5 mg Magnesium Hydroxide (Milk Of Magnesia 30 Ml Oral.Susp) 30 ml PO DAILY PRN PRN Reason: Constipation Last Admin: 12/27/21 11:40 Dose: 30 ml Metformin HCl (Metformin Hcl Er 500 Mg Tab.Er.24h) 1,000 mg PO BIDWM [facility] Last Admin: 12/27/21 08:23 Dose: 1,000 mg Naproxen (Naproxen 500 Mg Tablet) 500 mg PO BIDWM PRN PRN Reason: moderate pain Last Admin: 12/27/21 11:02 Dose: 500 mg Quetiapine Fumarate (Quetiapine Fumarate 200 Mg Tablet) 200 mg PO TID [facility] Last Admin: 12/27/21 14:56 Dose: 200 mg Risperidone (Risperidone 0.5 Mg Tablet) 0.5 mg PO BID [facility] Last Admin: 12/27/21 08:23 Dose: 0.5 mg Triamcinolone Acetonide (Triamcinolone Acet 0.1 % Cream 15 Gm Tube) 1 appl TOPICAL BID [facility] Last Admin: 12/27/21 08:32 Dose: Not Given Valsartan (Valsartan 160 Mg Tablet) 160 mg PO DAILY [facility] Last Admin: 12/27/21 08:23 Dose: 160 mg Allergies Allergies Allergy/AdvReac Type Severity Reaction Status Date / Time No Known Allergies Allergy Verified 12/22/21 17:19 Assessment & Plan Assessment & Plan (1) Bipolar disorder: Status: Acute Code(s): F31.9 - Bipolar disorder, unspecified Plan Mrs. Condon is a 66 year-old with hx of Bipolar disorder. Pt brought to ED due to increase confusions, paranoid, poor sleep, overly anxious and fearful. Although pt with hx of Bipolar, stable for many years, it appears that this presentation was different. Her op psychiatrist Dr. Krishnamurthy concerned about either MS flare up and/or new medication Lomaira prescribed for weight loss which is a beta adrenergic medication that increases noradrenaline and has potential for causing psychosis. Note that in the ED, a head CT was completed but MS active or recent lesions wouldn't be detected unless there is an MRI. Neurology consult was ordered by [facility] and pending. Lomaira will be d/c. Will also for now d/c Amantadine as ultimately increases dopamine which can worsen psychosis (it appears this medication was prescribed for fatigue s/s to MS but not for movement disorder). Pt on high dose of seroquel over 1200mg by OP psychiatrist- will lower seroquel to 200mg po TID, add low dose of risperidone as it may be more effective for psychosis. Pt does not appear with classic s/s of nasir episode; she appears with significant confusions, paranoia, with AH. She is not pressured nor present with flight of ideas, although her speech is disorganized. For this reason is important to r/o medical causes of her presentation as treatment would be different. PLAN 1. Admit to S1, CV, 15 mins checks for safety 2. d/c amantadine (increase dopamine worsens psychosis), d/c lomaira. Decrease seroquel to 200mg po TID, will add low dose risperidone to target psychosis as it may be more effective antipsychotic. Will switch clonazepam to ativan 0.5mg po TID. 3. Pending Neurology Consult 4. Aftercare planning I spent ___20___ minutes with the patient and/or on the patient floor today, greater than?50% of which was spent counseling/coordinating care. Reason for contiued inpatient stay Substantial Risk for: inability to function, rapid decompensation and med/psych decompensation
[2021-12-27 19:00] VITALS: BP 134/59; PULSE 96; RESP 16; TEMP 37; O2SAT 96
[2021-12-27 20:49] LABS: Glucose, Whole Blood 88 mg/dL (60-115)
[2021-12-28] MEDS: Acetaminophen 325 MG TABLET 650 MG PO ×2 (03:14→22:03)
[2021-12-28 06:00] VITALS: BP 168/74; PULSE 87; RESP 16; TEMP 36.2; O2SAT 97
[2021-12-28] MEDS: Levothyroxine Sodium 112 MCG TABLET PO (06:38)
[2021-12-28 07:50] LABS: Glucose, Whole Blood 83 mg/dL (60-115)
[2021-12-28] MEDS: QUEtiapine Fumarate 200 MG TABLET PO ×3 (10:38→21:22)
[2021-12-28] MEDS: Furosemide 20 MG TABLET PO (10:38)
[2021-12-28] MEDS: Baclofen 10 MG TABLET PO ×4 (10:38→21:23)
[2021-12-28] MEDS: Valsartan 160 MG TABLET PO (10:38)
[2021-12-28] MEDS: metFORMIN HCl ER 500 MG TAB.ER.24H 1000 MG PO ×2 (10:38→17:04)
[2021-12-28] MEDS: LORazepam 0.5 MG TABLET PO ×3 (10:38→21:22)
[2021-12-28] MEDS: risperiDONE 0.5 MG TABLET PO ×2 (10:38→21:22)
[2021-12-28] MEDS: Triamcinolone Acet 0.1 % Cream 15 GM TUBE 1 APPL TOPICAL (10:39)
--- NOTE | 2021-12-28 15:01 | HO.PSYCHPN ---
Subjective Subjective Date of Service: 12/28/21 Reason For Visit: Unspecified Bipolar and Related Disorder Subjective Notes: Conditional Voluntary Interim History: The nursing staff reported the patient had poor sleep since she complained that the [place] was making too much noise at night. The nursing staff reported that she had been fully compliant with treatment. Today we had a family meeting with her and apparently the psychotic symptoms and nasir was abrupt after taking phentermine for weight loss. I advised that she should stay away of any appetite suppressant at this moment. We did an MRI today and according to the radiologist there is no evidence of acute attack of MS. Mental Status Exam Mental Status Exam Patient Appearance: Well Grooomed Patient Orientation: Person and Situation Level of Consciousness: Awake Patient Behavior: Cooperative Mood Description: Calm Affect Description: Constricted Speech Pattern: Clear Hallucinations: None Delusions: Not Present Thought Process: Linear Thought Content: positive for Circumstantial Judgement: Fair Diagnostics Vital Signs (24Hr): Vital Signs - 24 hr 12/27/21 19:00 12/28/21 06:00 Temperature 98.6 F 97.1 F Pulse Rate 96 87 Respiratory Rate 16 16 Blood Pressure 134/59 L 168/74 H Pulse Oximetry 96 97 Oxygen Delivery Method Room Air Room Air Labs Results: 12/23/21 15:51 12/24/21 08:09 Labs: Laboratory Results - last 48 hr 12/26/21 12/26/21 12/27/21 16:45 20:16 07:49 POC Glucose 87 111 92 12/27/21 12/27/21 12/27/21 11:24 16:41 20:45 POC Glucose 100 110 88 12/28/21 07:44 POC Glucose 83 Imaging Radiology Impressions: ITS Impressions Brain MRI 12/28/21 12:15 IMPRESSION: 1. No acute intracranial abnormalities. 2. Mild nonspecific white matter changes and generalized cerebral volume loss. Medications Medications Current Medications Acetaminophen (Acetaminophen 325 Mg Tablet) 650 mg PO Q6H PRN PRN Reason: Headache/Pain Mild Scale (1-3) Last Admin: 12/28/21 03:14 Dose: 650 mg Al Hydroxide/Mg Hydroxide (Magnesium Hydrox/Alum Hydrox 30 Ml Oral.Susp) 30 ml PO Q6H PRN PRN Reason: Heartburn/Nausea Azelastine HCl (Azelastine Hcl Nasal 137 Mcg/[place] 30 Ml) 2 spray NOSTRIL-B BID YULIA Last Admin: 12/28/21 10:38 Dose: Not Given Baclofen (Baclofen 10 Mg Tablet) 10 mg PO QID [facility] Last Admin: 12/28/21 10:38 Dose: 10 mg Dextrose (Dextrose 50 % 25 Gm/50 Ml Syringe) 25 gm IVPUSH Q15M PRN; Protocol PRN Reason: per Hypoglycemia Standing Ord. Furosemide (Furosemide 20 Mg Tablet) 20 mg PO DAILY [facility]; Protocol Last Admin: 12/28/21 10:38 Dose: 20 mg Glucose (Glucose Gel 15 Gm Gel..Gram.) 15 gm PO Q15M PRN; Protocol PRN Reason: per Hypoglycemia Standing Ord. Glycerin (Glycerin Adult Supp.Rect) 1 supp [place] BEDTIME PRN PRN Reason: constipation Last Admin: 12/25/21 23:04 Dose: 1 supp Levothyroxine Sodium (Levothyroxine Sodium 112 Mcg Tablet) 112 mcg PO DAILY@0600 [facility] Last Admin: 12/28/21 06:38 Dose: 112 mcg Lorazepam (Lorazepam 0.5 Mg Tablet) 0.5 mg PO TID [facility] Last Admin: 12/28/21 10:38 Dose: 0.5 mg Magnesium Hydroxide (Milk Of Magnesia 30 Ml Oral.Susp) 30 ml PO DAILY PRN PRN Reason: Constipation Last Admin: 12/27/21 11:40 Dose: 30 ml Metformin HCl (Metformin Hcl Er 500 Mg Tab.Er.24h) 1,000 mg PO BIDWM [facility] Last Admin: 12/28/21 10:38 Dose: 1,000 mg Naproxen (Naproxen 500 Mg Tablet) 500 mg PO BIDWM PRN PRN Reason: moderate pain Last Admin: 12/27/21 11:02 Dose: 500 mg Quetiapine Fumarate (Quetiapine Fumarate 200 Mg Tablet) 200 mg PO TID [facility] Last Admin: 12/28/21 10:38 Dose: 200 mg Risperidone (Risperidone 0.5 Mg Tablet) 0.5 mg PO BID [facility] Last Admin: 12/28/21 10:38 Dose: 0.5 mg Triamcinolone Acetonide (Triamcinolone Acet 0.1 % Cream 15 Gm Tube) 1 appl TOPICAL BID [facility] Last Admin: 12/28/21 10:39 Dose: 1 appl Valsartan (Valsartan 160 Mg Tablet) 160 mg PO DAILY [facility] Last Admin: 12/28/21 10:38 Dose: 160 mg Allergies Allergies Allergy/AdvReac Type Severity Reaction Status Date / Time No Known Allergies Allergy Verified 12/22/21 17:19 Assessment & Plan Assessment & Plan (1) Bipolar disorder: Status: Acute Code(s): F31.9 - Bipolar disorder, unspecified Plan Mrs. Condon is a 66 year-old with hx of Bipolar disorder. Pt brought to ED due to increase confusions, paranoid, poor sleep, overly anxious and fearful. Although pt with hx of Bipolar, stable for many years, it appears that this presentation was different. Her op psychiatrist Dr. Krishnamurthy concerned about either MS flare up and/or new medication Lomaira prescribed for weight loss which is a beta adrenergic medication that increases noradrenaline and has potential for causing psychosis. Note that in the ED, a head CT was completed but MS active or recent lesions wouldn't be detected unless there is an MRI. Neurology consult was ordered by [facility] and pending. Lomaira will be d/c. Will also for now d/c Amantadine as ultimately increases dopamine which can worsen psychosis (it appears this medication was prescribed for fatigue s/s to MS but not for movement disorder). Pt on high dose of seroquel over 1200mg by OP psychiatrist- will lower seroquel to 200mg po TID, add low dose of risperidone as it may be more effective for psychosis. Pt does not appear with classic s/s of nasir episode; she appears with significant confusions, paranoia, with AH. She is not pressured nor present with flight of ideas, although her speech is disorganized. For this reason is important to r/o medical causes of her presentation as treatment would be different. PLAN 1. Admit to S1, CV, 15 mins checks for safety 2. d/c amantadine (increase dopamine worsens psychosis), d/c lomaira. Decrease seroquel to 200mg po TID, will add low dose risperidone to target psychosis as it may be more effective antipsychotic. Will switch clonazepam to ativan 0.5mg po TID. 3. Pending Neurology Consult 4. Aftercare planning I spent ___20___ minutes with the patient and/or on the patient floor today, greater than?50% of which was spent counseling/coordinating care. Reason for contiued inpatient stay Substantial Risk for: inability to function, rapid decompensation and med/psych decompensation
[2021-12-28 16:59] LABS: Glucose, Whole Blood 120 mg/dL (60-115)
[2021-12-28] MEDS: NaPROXEN 500 MG TABLET PO (17:04)
[2021-12-28 18:00] VITALS: BP 133/62; PULSE 95; RESP 18; TEMP 36.3; O2SAT 96
[2021-12-28] MEDS: Temazepam 15 MG CAPSULE PO (21:22)
[2021-12-28 22:10] LABS: Glucose, Whole Blood 92 mg/dL (60-115)
[2021-12-29] MEDS: Levothyroxine Sodium 112 MCG TABLET PO (05:17)
[2021-12-29] MEDS: Acetaminophen 325 MG TABLET 650 MG PO ×3 (05:28→21:19)
[2021-12-29 06:00] VITALS: BP 149/65; PULSE 85; RESP 18; TEMP 36.3; O2SAT 96
[2021-12-29 08:03] LABS: Glucose, Whole Blood 97 mg/dL (60-115)
[2021-12-29] MEDS: LORazepam 0.5 MG TABLET PO ×3 (09:01→21:19)
[2021-12-29] MEDS: risperiDONE 0.5 MG TABLET PO ×2 (09:01→21:19)
[2021-12-29] MEDS: metFORMIN HCl ER 500 MG TAB.ER.24H 1000 MG PO ×2 (09:01→19:04)
[2021-12-29] MEDS: Valsartan 160 MG TABLET PO (09:01)
[2021-12-29] MEDS: Furosemide 20 MG TABLET PO (09:01)
[2021-12-29] MEDS: QUEtiapine Fumarate 200 MG TABLET PO ×3 (09:01→21:19)
[2021-12-29] MEDS: Baclofen 10 MG TABLET PO ×4 (09:02→21:19)
[2021-12-29 12:06] LABS: Glucose, Whole Blood 126 mg/dL (60-115)
--- NOTE | 2021-12-29 13:48 | P.PNPSI_ITS ---
Subjective Subjective Date of Service: 12/29/21 Reason For Visit: Unspecified Bipolar and Related Disorder Subjective Notes: Conditional Voluntary Interim History: The nursing staff reported the patient has been pleasant and cooperative, yesterday we have a family meeting and we will work on discharge tomorrow. On interview the patient reports that she slept poorly. No new symptoms. No evidence of nasir or psychosis. I called her psychiatrist and gave her an update. Mental Status Exam Mental Status Exam Patient Appearance: Well Grooomed Patient Orientation: Person and Situation Level of Consciousness: Awake Patient Behavior: Cooperative Mood Description: Constricted Affect Description: Calm Patient Cognition Impaired: No Ability to Follow Directions: Good Speech Pattern: Clear Hallucinations: None Delusions: Not Present Thought Process: Distracted Thought Content: positive for Circumstantial Judgement: Fair Diagnostics Vital Signs (24Hr): Vital Signs - 24 hr 12/28/21 18:00 12/29/21 06:00 Temperature 97.4 F 97.4 F Pulse Rate 95 85 Respiratory Rate 18 18 Blood Pressure 133/62 149/65 H Pulse Oximetry 96 96 Oxygen Delivery Method Room Air Room Air Labs Results: 12/23/21 15:51 12/24/21 08:09 Labs: Laboratory Results - last 48 hr 12/27/21 12/27/21 12/28/21 16:41 20:45 07:44 POC Glucose 110 88 83 12/28/21 12/28/21 12/29/21 16:53 22:01 07:57 POC Glucose 120 H 92 97 12/29/21 12:02 POC Glucose 126 H Imaging Radiology Impressions: ITS Impressions Brain MRI 12/28/21 12:15 IMPRESSION: 1. No acute intracranial abnormalities. 2. Mild nonspecific white matter changes and generalized cerebral volume loss. Medications Medications Current Medications Acetaminophen (Acetaminophen 325 Mg Tablet) 650 mg PO Q6H PRN PRN Reason: Headache/Pain Mild Scale (1-3) Last Admin: 12/29/21 12:36 Dose: 650 mg Al Hydroxide/Mg Hydroxide (Magnesium Hydrox/Alum Hydrox 30 Ml Oral.Susp) 30 ml PO Q6H PRN PRN Reason: Heartburn/Nausea Azelastine HCl (Azelastine Hcl Nasal 137 Mcg/[place] 30 Ml) 2 spray NOSTRIL-B BID YULIA Last Admin: 12/29/21 12:20 Dose: Not Given Baclofen (Baclofen 10 Mg Tablet) 10 mg PO QID [facility] Last Admin: 12/29/21 12:24 Dose: 10 mg Dextrose (Dextrose 50 % 25 Gm/50 Ml Syringe) 25 gm IVPUSH Q15M PRN; Protocol PRN Reason: per Hypoglycemia Standing Ord. Furosemide (Furosemide 20 Mg Tablet) 20 mg PO DAILY [facility]; Protocol Last Admin: 12/29/21 09:01 Dose: 20 mg Glucose (Glucose Gel 15 Gm Gel..Gram.) 15 gm PO Q15M PRN; Protocol PRN Reason: per Hypoglycemia Standing Ord. Glycerin (Glycerin Adult Supp.Rect) 1 supp [place] BEDTIME PRN PRN Reason: constipation Last Admin: 12/25/21 23:04 Dose: 1 supp Levothyroxine Sodium (Levothyroxine Sodium 112 Mcg Tablet) 112 mcg PO DAILY@0600 [facility] Last Admin: 12/29/21 05:17 Dose: 112 mcg Lorazepam (Lorazepam 0.5 Mg Tablet) 0.5 mg PO TID [facility] Last Admin: 12/29/21 09:01 Dose: 0.5 mg Magnesium Hydroxide (Milk Of Magnesia 30 Ml Oral.Susp) 30 ml PO DAILY PRN PRN Reason: Constipation Last Admin: 12/27/21 11:40 Dose: 30 ml Metformin HCl (Metformin Hcl Er 500 Mg Tab.Er.24h) 1,000 mg PO BIDWM [facility] Last Admin: 12/29/21 09:01 Dose: 1,000 mg Naproxen (Naproxen 500 Mg Tablet) 500 mg PO BIDWM PRN PRN Reason: moderate pain Last Admin: 12/28/21 17:04 Dose: 500 mg Quetiapine Fumarate (Quetiapine Fumarate 200 Mg Tablet) 200 mg PO TID [facility] Last Admin: 12/29/21 09:01 Dose: 200 mg Risperidone (Risperidone 0.5 Mg Tablet) 0.5 mg PO BID [facility] Last Admin: 12/29/21 09:01 Dose: 0.5 mg Temazepam (Temazepam 15 Mg Capsule) 15 mg PO BEDTIME [facility] Last Admin: 12/28/21 21:22 Dose: 15 mg Triamcinolone Acetonide (Triamcinolone Acet 0.1 % Cream 15 Gm Tube) 1 appl TOPICAL BID [facility] Last Admin: 12/29/21 12:20 Dose: Not Given Valsartan (Valsartan 160 Mg Tablet) 160 mg PO DAILY [facility] Last Admin: 12/29/21 09:01 Dose: 160 mg Allergies Allergies Allergy/AdvReac Type Severity Reaction Status Date / Time No Known Allergies Allergy Verified 12/22/21 17:19 Assessment & Plan Assessment & Plan (1) Bipolar disorder: Status: Acute Code(s): F31.9 - Bipolar disorder, unspecified Plan Mrs. Condon is a 66 year-old with hx of Bipolar disorder. Pt brought to ED due to increase confusions, paranoid, poor sleep, overly anxious and fearful. Although pt with hx of Bipolar, stable for many years, it appears that this presentation was different. Her op psychiatrist Dr. Krishnamurthy concerned about either MS flare up and/or new medication Lomaira prescribed for weight loss which is a beta adrenergic medication that increases noradrenaline and has potential for causing psychosis. Note that in the ED, a head CT was completed but MS active or recent lesions wouldn't be detected unless there is an MRI. Neurology consult was ordered by [facility] and pending. Lomaira will be d/c. Will also for now d/c Amantadine as ultimately increases dopamine which can worsen psychosis (it appears this medication was prescribed for fatigue s/s to MS but not for movement disorder). Pt on high dose of seroquel over 1200mg by OP psychiatrist- will lower seroquel to 200mg po TID, add low dose of risperidone as it may be more effective for psychosis. Pt does not appear with classic s/s of nasir episode; she appears with significant confusions, paranoia, with AH. She is not pressured nor present with flight of ideas, although her speech is disorganized. For this reason is important to r/o medical causes of her presentation as treatment would be different. PLAN 1. Admit to S1, CV, 15 mins checks for safety 2. d/c amantadine (increase dopamine worsens psychosis), d/c lomaira. Decrease seroquel to 200mg po TID, will add low dose risperidone to target psychosis as it may be more effective antipsychotic. Will switch clonazepam to ativan 0.5mg po TID. 3. Pending Neurology Consult 4. Aftercare planning I spent __20____ minutes with the patient and/or on the patient floor today, greater than?50% of which was spent counseling/coordinating care. Reason for contiued inpatient stay Substantial Risk for: inability to function, rapid decompensation and med/psych decompensation
[2021-12-29 17:03] LABS: Glucose, Whole Blood 123 mg/dL (60-115)
[2021-12-29 18:00] VITALS: BP 131/66; PULSE 98; RESP 18; TEMP 36.7; O2SAT 95
[2021-12-29] MEDS: Temazepam 15 MG CAPSULE PO (21:19)
[2021-12-29] MEDS: Azelastine HCl Nasal 137 MCG/Spray 30 ML 2 SPRAY NOSTRIL-B (21:19)
[2021-12-29] MEDS: Triamcinolone Acet 0.1 % Cream 15 GM TUBE 1 APPL TOPICAL (21:20)
[2021-12-29 22:09] LABS: Glucose, Whole Blood 116 mg/dL (60-115)
[2021-12-30] MEDS: Acetaminophen 325 MG TABLET 650 MG PO (03:45)
[2021-12-30] MEDS: Levothyroxine Sodium 112 MCG TABLET PO (06:20)
[2021-12-30 07:30] VITALS: BP 142/66; PULSE 78; RESP 16; TEMP 36.5; O2SAT 97
[2021-12-30 07:47] LABS: Glucose, Whole Blood 91 mg/dL (60-115)
--- NOTE | 2021-12-30 09:03 | P.DS_ITS ---
DS: Providers Provider Date of Service: 12/30/21 Date of admission: 12/22/21 20:45 Date of discharge: 12/30/21 Primary care physician: Unknown Physician Consults: 12/22/21 17:19 Consult to Hospitalist Routine Consulting Provider: Hospitalist Reason For Exam: Tranfer from Wing 12/23/21 14:24 Consult to Neurology Routine Consulting Provider: [facility] Reason for consultation: MS flare DS: Diagnosis Discharge Diagnosis (1) Bipolar disorder: Status: Acute Mental Status Exam Mental Status Exam Patient Appearance: Well Grooomed Patient Orientation: Person, Place, Time and Situation Level of Consciousness: Awake Patient Behavior: Appropriate and Cooperative Mood Description: Calm Affect Description: Appropriate Patient Cognition Impaired: No Ability to Follow Directions: Good Speech Pattern: Clear Hallucinations: None Delusions: Not Present Thought Process: Goal Oriented Thought Content: positive for Intact Judgement: Fair Data Data Completed and Pending Completed studies during hospitalization [Text1]: 12/23/21 12/23/21 12/23/21 11:23 11:23 11:23 WBC RBC Hgb Hct MCV MCH MCHC RDW Plt Count MPV Immature Gran % (Auto) Neut % (Auto) Lymph % (Auto) [place] % (Auto) Eos % (Auto) Baso % (Auto) Lymph # (Auto) [place] # (Auto) Eos # (Auto) Baso # (Auto) Abs Immat Gran (auto) Absolute Neuts (auto) Absolute Nucleated RBC Nucleated RBC % (auto) ESR Sodium 147 H Potassium 3.9 Chloride 110 H Carbon Dioxide 26 Anion Gap 15 BUN 17 H Creatinine 0.99 Estim Creat Clear Calc TNP Estimated GFR 56 POC Glucose Random Glucose 116 H Estimat Average Glucose 105 Hemoglobin A1c % 5.3 Calcium 9.9 Total Bilirubin 0.2 AST 20 ALT 24 Alkaline Phosphatase 88 C-React Prot High Sens Total Protein 7.0 Albumin 4.4 Vitamin B12 1193 H Folate 18.1 12/23/21 12/23/21 12/23/21 15:51 15:51 15:51 WBC 8.9 RBC 3.54 L Hgb 10.8 L Hct 32.4 L MCV 91.5 MCH 30.5 MCHC 33.3 RDW 13.9 Plt Count 291 MPV 10.9 Immature Gran % (Auto) 0.4 Neut % (Auto) 66.0 Lymph % (Auto) 14.5 L [place] % (Auto) 15.7 H Eos % (Auto) 2.8 Baso % (Auto) 0.6 Lymph # (Auto) 1.3 [place] # (Auto) 1.4 H Eos # (Auto) 0.3 Baso # (Auto) 0.1 Abs Immat Gran (auto) 0.04 H Absolute Neuts (auto) 5.9 Absolute Nucleated RBC 0.000 Nucleated RBC % (auto) 0.0 ESR 16 Sodium Potassium Chloride Carbon Dioxide Anion Gap BUN Creatinine Estim Creat Clear Calc Estimated GFR POC Glucose Random Glucose Estimat Average Glucose Hemoglobin A1c % Calcium Total Bilirubin AST ALT Alkaline Phosphatase C-React Prot High Sens 0.6 Total Protein Albumin Vitamin B12 Folate 12/24/21 12/24/21 12/25/21 08:09 16:41 08:53 WBC RBC Hgb Hct MCV MCH MCHC RDW Plt Count MPV Immature Gran % (Auto) Neut % (Auto) Lymph % (Auto) [place] % (Auto) Eos % (Auto) Baso % (Auto) Lymph # (Auto) [place] # (Auto) Eos # (Auto) Baso # (Auto) Abs Immat Gran (auto) Absolute Neuts (auto) Absolute Nucleated RBC Nucleated RBC % (auto) ESR Sodium 144 Potassium 3.9 Chloride 108 Carbon Dioxide 22 Anion Gap 18 BUN 24 H Creatinine 0.87 Estim Creat Clear Calc TNP Estimated GFR > 60 POC Glucose 105 143 H Random Glucose 84 Estimat Average Glucose Hemoglobin A1c % Calcium 9.1 D Total Bilirubin AST ALT Alkaline Phosphatase C-React Prot High Sens Total Protein Albumin Vitamin B12 Folate 12/25/21 12/25/21 12/26/21 11:36 16:25 09:17 WBC RBC Hgb Hct MCV MCH MCHC RDW Plt Count MPV Immature Gran % (Auto) Neut % (Auto) Lymph % (Auto) [place] % (Auto) Eos % (Auto) Baso % (Auto) Lymph # (Auto) [place] # (Auto) Eos # (Auto) Baso # (Auto) Abs Immat Gran (auto) Absolute Neuts (auto) Absolute Nucleated RBC Nucleated RBC % (auto) ESR Sodium Potassium Chloride Carbon Dioxide Anion Gap BUN Creatinine Estim Creat Clear Calc Estimated GFR POC Glucose 91 109 92 Random Glucose Estimat Average Glucose Hemoglobin A1c % Calcium Total Bilirubin AST ALT Alkaline Phosphatase C-React Prot High Sens Total Protein Albumin Vitamin B12 Folate 12/26/21 12/26/21 12/26/21 11:56 16:45 20:16 WBC RBC Hgb Hct MCV MCH MCHC RDW Plt Count MPV Immature Gran % (Auto) Neut % (Auto) Lymph % (Auto) [place] % (Auto) Eos % (Auto) Baso % (Auto) Lymph # (Auto) [place] # (Auto) Eos # (Auto) Baso # (Auto) Abs Immat Gran (auto) Absolute Neuts (auto) Absolute Nucleated RBC Nucleated RBC % (auto) ESR Sodium Potassium Chloride Carbon Dioxide Anion Gap BUN Creatinine Estim Creat Clear Calc Estimated GFR POC Glucose 182 H 87 111 Random Glucose Estimat Average Glucose Hemoglobin A1c % Calcium Total Bilirubin AST ALT Alkaline Phosphatase C-React Prot High Sens Total Protein Albumin Vitamin B12 Folate 12/27/21 12/27/21 12/27/21 07:49 11:24 16:41 WBC RBC Hgb Hct MCV MCH MCHC RDW Plt Count MPV Immature Gran % (Auto) Neut % (Auto) Lymph % (Auto) [place] % (Auto) Eos % (Auto) Baso % (Auto) Lymph # (Auto) [place] # (Auto) Eos # (Auto) Baso # (Auto) Abs Immat Gran (auto) Absolute Neuts (auto) Absolute Nucleated RBC Nucleated RBC % (auto) ESR Sodium Potassium Chloride Carbon Dioxide Anion Gap BUN Creatinine Estim Creat Clear Calc Estimated GFR POC Glucose 92 100 110 Random Glucose Estimat Average Glucose Hemoglobin A1c % Calcium Total Bilirubin AST ALT Alkaline Phosphatase C-React Prot High Sens Total Protein Albumin Vitamin B12 Folate 12/27/21 12/28/21 12/28/21 20:45 07:44 16:53 WBC RBC Hgb Hct MCV MCH MCHC RDW Plt Count MPV Immature Gran % (Auto) Neut % (Auto) Lymph % (Auto) [place] % (Auto) Eos % (Auto) Baso % (Auto) Lymph # (Auto) [place] # (Auto) Eos # (Auto) Baso # (Auto) Abs Immat Gran (auto) Absolute Neuts (auto) Absolute Nucleated RBC Nucleated RBC % (auto) ESR Sodium Potassium Chloride Carbon Dioxide Anion Gap BUN Creatinine Estim Creat Clear Calc Estimated GFR POC Glucose 88 83 120 H Random Glucose Estimat Average Glucose Hemoglobin A1c % Calcium Total Bilirubin AST ALT Alkaline Phosphatase C-React Prot High Sens Total Protein Albumin Vitamin B12 Folate 10/12/22 10/13/22 10/13/22 22:01 07:57 12:02 WBC RBC Hgb Hct MCV MCH MCHC RDW Plt Count MPV Immature Gran % (Auto) Neut % (Auto) Lymph % (Auto) [place] % (Auto) Eos % (Auto) Baso % (Auto) Lymph # (Auto) [place] # (Auto) Eos # (Auto) Baso # (Auto) Abs Immat Gran (auto) Absolute Neuts (auto) Absolute Nucleated RBC Nucleated RBC % (auto) ESR Sodium Potassium Chloride Carbon Dioxide Anion Gap BUN Creatinine Estim Creat Clear Calc Estimated GFR POC Glucose 92 97 126 H Random Glucose Estimat Average Glucose Hemoglobin A1c % Calcium Total Bilirubin AST ALT Alkaline Phosphatase C-React Prot High Sens Total Protein Albumin Vitamin B12 Folate 12/29/21 12/29/21 12/30/21 16:55 22:01 07:44 WBC RBC Hgb Hct MCV MCH MCHC RDW Plt Count MPV Immature Gran % (Auto) Neut % (Auto) Lymph % (Auto) [place] % (Auto) Eos % (Auto) Baso % (Auto) Lymph # (Auto) [place] # (Auto) Eos # (Auto) Baso # (Auto) Abs Immat Gran (auto) Absolute Neuts (auto) Absolute Nucleated RBC Nucleated RBC % (auto) ESR Sodium Potassium Chloride Carbon Dioxide Anion Gap BUN Creatinine Estim Creat Clear Calc Estimated GFR POC Glucose 123 H 116 H 91 Random Glucose Estimat Average Glucose Hemoglobin A1c % Calcium Total Bilirubin AST ALT Alkaline Phosphatase C-React Prot High Sens Total Protein Albumin Vitamin B12 Folate Imaging Diagnostic Imaging Impressions Brain MRI 12/28/21 12:15 IMPRESSION: 1. No acute intracranial abnormalities. 2. Mild nonspecific white matter changes and generalized cerebral volume loss. DS: Summary Hospital Course Hospital Course: The patient was admitted for an exacerbation of nasir and psychosis, she was initially treated in our facility and transferred here for continuation of care. Please see HPI note of the admission note for further details. The patient carries a diagnosis of bipolar disorder and she has been fairly well controlled the last years her and this change of mental status was abrupt. On admission, on top of her regular Seroquel, since she was very psychotic with auditory hallucinations and paranoia, unknown dose of Risperdal was added. Later on, we found out that the patient started a weight loss medication, phentermine a few days ago. We decided not to continue these medication when she was here. Her psychotic symptoms and nasir disappeared pretty fast. We had a family meeting was clear that the addition of stimulants for weight loss was the cause of this abrupt changes in mental status. While she was in the unit, she participated in therapeutic activities she was able to contract for safety in her mental status cleared up pretty fast. She couldn't fall sleep and I added Restoril with a good response. We had a family meeting with her who corroborated that she was at baseline. Since there were no safety concerns discharge planning was discussed. I tried to contact her psychiatrist but apparently, the number was wrong. 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 ) Sophy Winn [facility] [Other] - 01/12/22 1:00 pm (Your next therapy appointment with Sophy Winn is 01/12/22 at 1PM. ) Dr Cara Kessler [facility] [Other] - 1 Week (Your PCP office will contact you for an appointment following discharge. Appointment was requested for 7-10 days from discharge. ) Discharge Medications: New acetaminophen 325 mg Tablet 650 mg PO Q6H PRN (Reason: Headache/Pain Mild Scale (1-3)) 30 Days Qty: 30 0RF dextrose [Glutose-15] 40 % Gel 15 g PO Q15M PRN (Reason: Per Hypoglycemia Standing Ord.) 30 Days Qty: 15 0RF Protocol: Glucose Gel Hypoglycemia Standing Order Protocol Text: For patients able to take PO (patient cooperative and able to swallow). Give Glucose Gel 15 gm PO for Blood Glucose (BG) < 70. Repeat BG every 15 min until BG > 70 x 3, if BG still < 70 and/or patient symptomatic repeat glucose gel or rapid acting carbohydrate. Notify MD if BG does not improve with treatment. quetiapine 200 mg Tablet 200 mg PO TID 30 Days Qty: 90 0RF triamcinolone acetonide 0.1 % Cream 1 appl topical BID 30 Days Qty: 1 0RF lorazepam 0.5 mg Tablet 0.5 mg PO TID 30 Days Qty: 90 0RF temazepam 15 mg Capsule 15 mg PO BEDTIME 30 Days Qty: 30 0RF baclofen 10 mg Tablet 10 mg PO QID 30 Days Qty: 120 0RF furosemide 20 mg Tablet 20 mg PO DAILY 30 Days Qty: 30 0RF Protocol: Hold for SBP< HOLD for SBP < : 90 azelastine 137 mcg (0.1 %) Aerosol,[place] 2 spray intranasal BID 30 Days Qty: 1 0RF metformin 500 mg Tablet Extended Release 24 Hr 1,000 mg PO BIDWM 30 Days Qty: 120 0RF risperidone 0.5 mg Tablet 0.5 mg PO BID 30 Days Qty: 60 0RF naproxen 500 mg Tablet 500 mg PO BIDWM PRN (Reason: moderate pain) 15 Days Qty: 30 0RF levothyroxine 112 mcg Tablet 112 mcg PO DAILY@0600 30 Days Qty: 30 0RF valsartan 160 mg Tablet 160 mg PO DAILY 30 Days Qty: 30 0RF Discharge Orders: Discharge Order (Routine); Ordered 12/30/21 Ordered By: Juan Jose Ryan Diet: Advance to usual diet Activity on Discharge: As tolerated Stand Alone Forms: Patient Portal Discharge page Care Plan Goals: Care Plan Goals achieved in the admission Health Concerns: Continue with the regular outpatient providers. Plan of Treatment: F/U with the regular psychiatric providers Assessment: Elder femalw with Bipolar disorder admitted for an abrupt episode of nasir and psychosis after the use of Phentermine, now with psychosis resolved, clear and no safety concerns in the community.
[2021-12-30] MEDS: Triamcinolone Acet 0.1 % Cream 15 GM TUBE 1 APPL TOPICAL (09:06)
[2021-12-30] MEDS: QUEtiapine Fumarate 200 MG TABLET PO (09:28)
[2021-12-30] MEDS: LORazepam 0.5 MG TABLET PO (09:28)
[2021-12-30] MEDS: risperiDONE 0.5 MG TABLET PO (09:28)
[2021-12-30] MEDS: Baclofen 10 MG TABLET PO (09:28)
[2021-12-30] MEDS: Furosemide 20 MG TABLET PO (09:28)
[2021-12-30] MEDS: Valsartan 160 MG TABLET PO (09:28)
[2021-12-30] MEDS: metFORMIN HCl ER 500 MG TAB.ER.24H 1000 MG PO (09:28)
--- NOTE | 2021-12-30 12:06 | PC.NURSE ---
Pt. alert and oriented X 4. Denies SI/HI/AH/VH. Denies depression. Endorses mild anxiety over discharge but expresses she will be happy to see her dog and sleep in her own bed. Discharge instructions, pending appointments, and medications reviewed with pt. and , who both verbalized understanding. Pt. escorted by this policy writer via wheelchair to private car at main entrance at 1125.
== END 2021-12-30 11:25 | disposition home or self-care (01) | DRG 885 ==
PROVIDERS: Social Worker; Admitting Provider Psychiatry & Neurology Psychiatry; Visit Provider Psychiatry & Neurology Psychiatry
DX: F31.9 Bipolar disorder, unspecified (principal); G89.29 Other chronic pain; G35 Multiple sclerosis; E03.9 Hypothyroidism, unspecified; K21.9 Gastro-esophageal reflux disease without esophagitis; I10 Essential (primary) hypertension; E11.9 Type 2 diabetes mellitus without complications; Z87.891 Personal history of nicotine dependence; Z79.890 Hormone replacement therapy; Z79.899 Other long term (current) drug therapy
CPT/HCPCS: 36415; 70551; 80048; 80053; 82607; 82746; 82947; 83036; 85025; 85652; 86141